=== PATIENT | male | born 1990 | race Two or more races ===

== ENCOUNTER 2024-08-11 09:07 | Day surgery (SDC) | payer OTHER ==
[2024-08-09 09:22] LABS: Urine Bacteria None Seen /hpf (None Seen)
[2024-08-09 09:39] LABS: Basophils # (auto) 0.1 10 ^3/uL (0-0.2); Basophils % (auto) 0.9 % (0.0-2.0); Eosinophils # (auto) 0.2 10 ^3/uL (0-0.8); Eosinophils % (auto) 3.1 % (0.0-7.0); Hemoglobin 17.1 g/dL (13.5-17.5); Lymphocytes # (auto) 2.4 10 ^3/uL (0.4-5.4); Mean Corpuscular Hemoglobin 28.8 pg (28.0-32.0); Mean Corpuscular Volume 82.4 fL (80.0-100.0); Monocytes # (auto) 0.6 10 ^3/uL (0-1.3); Monocytes % (auto) 8.4 % (0.0-12.0); Neutrophils # (auto) 3.3 10 ^3/uL (1.6-8.6); Neutrophils % (auto) 50.6 % (37.0-80.0); Nucleated Red Blood Cells % 0.4 %; Platelet Count (auto) 269 10^3/uL (140-450); Red Blood Cells 5.95 10^6/uL (4.5-5.90); Red Cell Distribution Width 13.3 % (11.8-14.3); White Blood Cell 6.6 10^3/uL (4.4-10.8)
[2024-08-09 09:42] LABS: Urine Blood Negative /uL (Negative); Urine Clarity Clear (Clear); Urine Color Colorless (Yellow); Urine Protein, UAD Negative (Negative); Urine Specific Gravity 1.013 (1.001-1.035); Urine Squamous Epithelial Cell None Seen /hpf (<5); Urine Urobilinogen Normal (Negative); Urine WBC < 1 /HPF (0-3)
[2024-08-09 09:47] LABS: Alkaline Phosphatase 53 U/L (46-116); Anion Gap 5 (5-15); Aspartate Aminotransferase 23 U/L (13-40); BUN/Creatinine Ratio 10.9 (10.0-20.0); Bilirubin, Total 0.5 mg/dL (0.2-1.0); Blood Urea Nitrogen 11 mg/dL (9-23); Carbon Dioxide 28 mmol/L (20-31); Glucose 93 mg/dL (74-106); Potassium 4.8 mmol/L (3.5-5.1); Sodium 140 mmol/L (136-145); Total Protein 7.4 g/dL (5.7-8.2)
[2024-08-09 09:50] LABS: Alanine Aminotransferase 60 U/L (7-40); Albumin 4.8 g/dL (3.2-4.8); Calcium 10.5 mg/dL (8.7-10.4); Chloride 107 mmol/L (98-107)
[2024-08-09 09:54] LABS: INR 0.98 (0.9-1.15); Partial Thromboplastin Time 28.5 SEC (24.5-34.5); Prothrombin Time 10.4 sec (9.3-11.8)
[~2024-08-11] VITALS: Ht 175.3 cm; Wt 93.4 kg
[~2024-08-11 09:07] MED LIST: BUPR-133 PO; CHOL4POW39 PO; DICY10CA GT
[2024-08-11] MEDS ORDERED: LIDOCAINE 2% (LOCAL ANESTH.) PF 5ml SDV ONE (09:29)
[2024-08-11] MEDS ORDERED: PROPOFOL 10 MG/ML 20 ML IV ONE ×4 (09:29→09:43)
[2024-08-11 09:51] VITALS: PULSE 68; RESP 19; TEMP 97.9; O2SAT 99
--- NOTE | 2024-08-11 10:10 | DVHOP2 ---
Operative Report DATE OF OPERATION: 08/11/24 PROCEDURE: Upper Endoscopy with biopsy. PREOPERATIVE INDICATION: The patient is a 33 -year-old male undergoing endoscopy for dyspepsia abdominal pain and change in bowel habits POSTOPERATIVE DIAGNOSES: 1. 0.5 cm sliding-type hiatal hernia with grade a erosive esophagitis and slightly irregular squamocolumnar junction from which biopsies were obtained 2. Mild antral gastritis and mild duodenitis of the duodenal bulb and postbulbar area with prominent ampulla PROCEDURE PERFORMED BY: Ye Ho GI NURSE: Luz SCOPE: Olympus videoendoscope. ASA CLASS: 2 PREOPERATIVE MEDICATIONS: Mac sedation, Garland Handy PROCEDURE IN DETAIL: After obtaining an informed consent, the patient was placed on left lateral decubitus position. The patient was then sedated with the above medications. A bite block was placed between his teeth. The endoscope was then passed through the oropharynx, into the esophagus, and through the stomach and pylorus up to the second and third part of the duodenum. The endoscope was then withdrawn. Second and 3rd part of the duodenum were normal. The ampulla was slightly prominent. The duodenal bulb and postbulbar area showed mild duodenitis. Duodenal biopsies were obtained. The pre-pyloric area and antrum showed mild gastritis. Gastric biopsies were obtained. On retroflexion the fundus cardia and angularis were normal. The endoscope was then withdrawn into distal esophagus. Patient had a 0.5 cm sliding-type hiatal hernia with grade a erosive esophagitis and slightly irregular squamocolumnar junction. GE junction biopsies were obtained. The remaining distal and proximal esophagus and oropharynx were unremarkable The patient tolerated the procedure well without difficulty. COMPLICATIONS : None SPECIMENS: Duodenal Biopsies Gastric biopsies GE junction biopsies DISPOSITION: Stable PLAN: 1. Await for biopsy result; him soft mechanical diet 2. Will place pt on Protonix 40 mg p.o. daily 3. Lifestyle and dietary modifications for GERD 4. Avoid aspirin NSAIDs smoking alcohol 5. Outpatient follow up with me in 4-6 weeks to review results and discuss further management YE HO MD Aug 11, 2024 10:10
--- NOTE | 2024-08-11 10:12 | DVHOP2 ---
Operative Report DATE OF OPERATION: 08/11/24 PROCEDURE: Colonoscopy with biopsy. PREOPERATIVE INDICATION: The patient is a 33 -year-old male undergoing colonoscopy for change in bowel habits rule out colitis POSTOPERATIVE DIAGNOSES: 1. Minimal mucosal edema otherwise essentially completely normal colonoscopy examination up to the cecum and terminal ileum PROCEDURE PERFORMED BY: Ye Ho M.D. SCOPE: Olympus videocolonoscope. ASA CLASS: 2. PREOPERATIVE MEDICATIONS: Mac sedation, Garland Handy PROCEDURE IN DETAIL: After obtaining an informed consent, the patient was placed on left lateral decubitus position. He was then sedated with the above medications. A rectal examination was performed that was normal. The colonoscope was then passed through the anus into the rectosigmoid and through the descending, transverse, and ascending colon up to the cecum with visualization of the appendiceal orifice, base of the cecum and the ileocecal valve. The colonoscope was then withdrawn. Distal 10 cm of the terminal ileum were normal. There was minimal mucosal edema and suggestion of possible prior history of colitis. However there was no evidence of active colitis no clear-cut diverticular disease no polyps or masses Random colon biopsies were obtained. On retroflexion patient had trace internal hemorrhoids The patient tolerated the procedure well without difficulty. WITHDRAWAL TIME: 6 minute QUALITY OF THE PREP: [place] Bowel Prep score: 9. COMPLICATIONS : None SPECIMENS: Random colon biopsies DISPOSITION: Stable D/C to home PLAN: 1. Repeat colonoscopy base on biopsy result likely in 10 years 2. Resume GI soft diet advance as tolerated 3. Outpatient follow up with me in 4-6 weeks to review results and discuss further management and treat symptomatically YE HO MD Aug 11, 2024 10:12
[2024-08-11 10:25] VITALS: BP 129/81; PULSE 68; RESP 16; O2SAT 97
== END 2024-08-11 10:45 | disposition home or self-care (01) ==
LOC: GI 09:07
PROVIDERS: ATTEND Internal Medicine Gastroenterology
DX: R19.4 Change in bowel habit (principal); K29.50 Unspecified chronic gastritis without bleeding; K21.00 Gastro-esophageal reflux disease with esophagitis, without bleeding; K29.80 Duodenitis without bleeding; K44.9 Diaphragmatic hernia without obstruction or gangrene; K64.8 Other hemorrhoids; E66.9 Obesity, unspecified; F17.290 Nicotine dependence, other tobacco product, uncomplicated; Z68.36 Body mass index [BMI] 36.0-36.9, adult
CPT/HCPCS: 36415; 43239; 45380; 80053; 81001; 85025; 85610; 85730; 88305; 88312; 88342; J2003; J2704; J7030

== ENCOUNTER 2024-09-11 15:02 | Outpatient (CLI) | payer OTHER ==
[2024-09-11 15:44] LABS: Hematocrit 48.7 % (41.0-53.0); Hemoglobin 17.2 g/dL (13.5-17.5); Mean Corpuscular Hemoglobin 28.9 pg (28.0-32.0); Mean Corpuscular Volume 81.8 fL (80.0-100.0); Nucleated Red Blood Cells % 0.2 %
[2024-09-11 15:58] LABS: Alkaline Phosphatase 47 U/L (46-116); Anion Gap 8 (5-15); BUN/Creatinine Ratio 11.3 (10.0-20.0); Bilirubin, Total 0.9 mg/dL (0.2-1.0); Blood Urea Nitrogen 12 mg/dL (9-23); Carbon Dioxide 29 mmol/L (20-31); Chloride 103 mmol/L (98-107); Glucose 85 mg/dL (74-106); Potassium 3.9 mmol/L (3.5-5.1); Sodium 140 mmol/L (136-145); Total Protein 7.6 g/dL (5.7-8.2)
[2024-09-11 16:04] LABS: Alanine Aminotransferase 60 U/L (7-40); Albumin 5.0 g/dL (3.2-4.8); Calcium 10.8 mg/dL (8.7-10.4)
[2024-09-11 16:16] LABS: Hepatitis B Surface Antigen Negative (Negative)
[2024-09-11 16:37] LABS: Hepatitis C Antibody Negative (Negative)
[2024-09-12 12:07] LABS: Anti-Nuclear Antibody Direct Negative (Negative)
== END 2024-09-11 17:00 | disposition home or self-care (01) ==
LOC: LAB 15:02
PROVIDERS: ATTEND Internal Medicine Gastroenterology
DX: R19.7 Diarrhea, unspecified (principal)
CPT/HCPCS: 36415; 80053; 82728; 85025; 86038; 86256; 86671; 86803; 87340